=== PATIENT | male | born 1975 | race Hispanic/Latino ===

== ENCOUNTER 2021-12-20 13:55 | Emergency (ER) | payer OTHER, BC ==
[2021-12-20] MEDS ORDERED: Fentanyl 100 MCG/2 ML VIAL ONE (14:22)
[2021-12-20] MEDS ORDERED: PROPOFOL 20 ML ONE (14:22)
== END 2021-12-20 15:53 | disposition home or self-care (01) ==
LOC: ERS 13:55
DX: S43.004A Unspecified dislocation of right shoulder joint, initial encounter (principal); W50.0XXA Accidental hit or strike by another person, initial encounter; Y93.73 Activity, racquet and hand sports; Z87.19 Personal history of other diseases of the digestive system
CPT/HCPCS: 23650; 96374; J2704; J3010